=== PATIENT | female | born 1990 | race African-American/Black ===

== ENCOUNTER 2016-10-04 08:07 | Emergency (ER) | payer OTHER ==
[~2016-10-04] VITALS: Ht 170.2 cm; Wt 127.0 kg
[2016-10-04 08:39] VITALS: BP 149/86
== END 2016-10-04 09:28 | disposition home or self-care (01) ==
LOC: ER 08:07
DX: S86.812A Strain of other muscle(s) and tendon(s) at lower leg level, left leg, initial encounter (principal); X58.XXXA Exposure to other specified factors, initial encounter; Y93.89 Activity, other specified; Y92.89 Other specified places as the place of occurrence of the external cause; Y99.8 Other external cause status
CPT/HCPCS: 93971

== ENCOUNTER 2016-11-29 09:02 | Emergency (ER) | payer OTHER ==
[~2016-11-29] VITALS: Ht 170.2 cm; Wt 120.2 kg
[2016-11-29 09:57] LABS: Basophils # (auto) 0 uL; Basophils % (auto) 0.5 % (0.0-2.0); Eosinophils # (auto) 0.1 uL; Eosinophils % (auto) 2.7 % (0.0-7.0); Hematocrit 40.7 % (36.0-46.0); Hemoglobin 13.8 g/dL (12.2-16.2); Lymphocytes # (auto) 1.3 uL; Lymphocytes % (auto) 27.5 % (10.0-50.0); Mean Corpuscular Hemoglobin 30.7 pg (28.0-32.0); Mean Corpuscular Volume 90.3 fL (80.0-100.0); Mean Platelet Volume 9.8 fL (7.4-10.4); Monocytes # (auto) 0.4 uL; Monocytes % (auto) 7.6 % (0.0-12.0); Neutrophils # (auto) 2.9 uL; Neutrophils % (auto) 61.7 % (37.0-80.0); Platelet Count (auto) 229 10^3/uL (140-450); Red Cell Distribution Width 14.5 % (11.6-16.0); SUSPECT VIEW TRANSMISSION; White Blood Cell 4.6 10^3/uL (4.4-10.8)
[2016-11-29 10:05] LABS: Urine Bilirubin Negative (Negative); Urine Blood Negative /uL (Negative); Urine Color Yellow (Yellow); Urine Glucose Normal (Normal); Urine Nitrite Negative (Negative); Urine RBC <1 /hpf (0 - 4); Urine Squamous Epithelial Cell MOD /hpf (<5); Urine Urobilinogen Normal (Negative)
[2016-11-29 10:11] LABS: Urine Ketone 1+ (Negative)
[2016-11-29 10:38] LABS: Albumin 3.5 g/dL (3.4-5.0); BUN/Creatinine Ratio 16.2; Calcium 8.8 mg/dL (8.5-10.1); Potassium 3.8 mmol/L (3.5-5.1)
[2016-11-29 10:40] LABS: Bilirubin, Total 0.4 mg/dL (0.2-1.0); Total Protein 7.9 g/dL (6.4-8.2)
[2016-11-29 13:00] VITALS: BP 138/92
== END 2016-11-29 14:18 | disposition home or self-care (01) ==
LOC: ER 09:02
DX: N39.0 Urinary tract infection, site not specified (principal)
CPT/HCPCS: 36415; 80053; 81001; 81025; 85025

== ENCOUNTER 2018-01-15 09:38 | Emergency (ER) | payer OTHER ==
[~2018-01-15] VITALS: Ht 167.6 cm; Wt 121.6 kg
[2018-01-15 11:33] VITALS: BP 142/95
[2018-01-15] MEDS ORDERED: IBUPROFEN 800 MG TAB PO ONE (12:00)
== END 2018-01-15 12:19 | disposition home or self-care (01) ==
LOC: ER 09:38
DX: H60.92 Unspecified otitis externa, left ear (principal)

== ENCOUNTER 2018-04-25 09:45 | Emergency (ER) | payer OTHER ==
[~2018-04-25] VITALS: Ht 167.6 cm; Wt 126.6 kg
[2018-04-25 10:22] LABS: Urine Bacteria FEW /hpf (None Seen); Urine Blood Negative /uL (Negative); Urine Specific Gravity 1.018 (1.001-1.035); Urine WBC 1 /hpf (0 - 5)
[2018-04-25 10:40] LABS: Basophils # (auto) 0 uL; Basophils % (auto) 0.5 % (0.0-2.0); Eosinophils # (auto) 0.1 uL; Eosinophils % (auto) 1.4 % (0.0-7.0); Hematocrit 40.6 % (36.0-46.0); Hemoglobin 13.5 g/dL (12.2-16.2); Lymphocytes # (auto) 1.2 uL; Lymphocytes % (auto) 31.6 % (10.0-50.0); Mean Corpuscular Hemoglobin 30.6 pg (28.0-32.0); Mean Corpuscular Hgb Conc. 33.3 g/dL (32.0-36.0); Mean Corpuscular Volume 92.1 fL (80.0-100.0); Monocytes # (auto) 0.4 uL; Monocytes % (auto) 10.6 % (0.0-12.0); Neutrophils % (auto) 55.9 % (37.0-80.0); Platelet Count (auto) 228 10^3/uL (140-450); Red Blood Cells 4.41 10^6/uL (4.0-5.20); White Blood Cell 3.7 10^3/uL (4.4-10.8)
[2018-04-25 10:58] LABS: Albumin 3.3 g/dL (3.4-5.0); BUN/Creatinine Ratio 19.7; Bilirubin, Total 0.3 mg/dL (0.2-1.0); Calcium 8.7 mg/dL (8.5-10.1); Potassium 4.1 mmol/L (3.5-5.1); Total Protein 7.8 g/dL (6.4-8.2)
[2018-04-25 15:42] VITALS: BP 148/89
== END 2018-04-25 15:45 | disposition home or self-care (01) ==
LOC: ER 09:45
DX: O20.0 Threatened abortion (principal); Z3A.00 Weeks of gestation of pregnancy not specified
CPT/HCPCS: 36415; 76801; 76817; 80053; 81001; 84702; 85025

== ENCOUNTER 2021-04-22 09:33 | Emergency (ER) | payer MEDICAID, OTHER ==
[~2021-04-22] VITALS: Ht 165.1 cm; Wt 132.4 kg
[2021-04-22 10:39] VITALS: BP 152/95
== END 2021-04-22 10:47 | disposition home or self-care (01) ==
LOC: ER 09:33
DX: H65.192 Other acute nonsuppurative otitis media, left ear (principal)